=== PATIENT | male | born 1990 | race Caucasian/White ===

== ENCOUNTER 2020-06-01 19:18 | Emergency (ER) | payer OTHER ==
[~2020-06-01] VITALS: Ht 170.2 cm; Wt 70.8 kg
[2020-06-01] MEDS ORDERED: ONDANSETRON HCL/PF 4 MG/2 ML VIAL ONE (19:47)
[2020-06-01] MEDS ORDERED: MORPHINE SULFATE INJ 4 MG/ML DISP.SYRIN ONE (19:47)
[2020-06-01 19:57] LABS: BASOPHILS % (AUTO) 0.3 % (0.0-2.0); EOSINOPHILS % (AUTO) 0.1 % (0.0-6.0); HEMATOCRIT 49 % (39-51); HEMOGLOBIN 16.4 g/dL (13.5-17.5); LYMPHOCYTES # (AUTO) 0.3 /CMM (0.8-4.8); MEAN CORPUSCULAR HGB CONC 34 g/dl (31.0-36.0); MEAN CORPUSCULAR VOLUME 94 fL (80-96); MONOCYTES # (AUTO) 0.4 /CMM (0.1-1.30); NEUTROPHILS # (AUTO) 4.5 /CMM (1.8-8.9); NEUTROPHILS % (AUTO) 87.6 % (43.0-81.0); PLATELET COUNT (AUTO) 189 /CMM (150-450); WHITE BLOOD COUNT (AUTO) 5.2 K/uL (4.3-11.0)
[2020-06-01 20:00] LABS: BILIRUBIN,URINE Negative (NEGATIVE); COLOR,URINE YELLOW (YELLOW); LEUKOCYTE ESTERASE ,URINE Negative (NEGATIVE); NITRITE, URINE Negative (NEGATIVE); PROTEIN,URINE Negative (NEGATIVE); UGLUCOSE Negative (NEGATIVE); UROBILINOGEN,URINE 0.2 EU/dL (0.2)
[2020-06-01] MEDS ORDERED: MORPHINE SULFATE INJ 2 MG/ML DISP.SYRIN IV ONE (20:00)
[2020-06-01] MEDS ORDERED: ONDANSETRON HCL/PF 4 MG/2 ML VIAL IVP ONE (20:00)
[2020-06-01] MEDS ORDERED: IV NS 0.9% 1,000 ML BAG IV ONE (20:00)
[2020-06-01 20:21] LABS: ALBUMIN 4.1 g/dL (3.4-5.0); BILIRUBIN,TOTAL 0.5 mg/dL (0.2-1.0); CALCIUM, SERUM 8.7 mg/dL (8.5-10.1); POTASSIUM 3.9 mmol/L (3.5-5.1); TOTAL PROTEIN, SERUM 7.3 g/dL (6.4-8.2)
[2020-06-01] MEDS ORDERED: TRAM50TA2 PO (21:01)
[2020-06-01 21:20] VITALS: BP 115/76
== END 2020-06-01 21:20 | disposition home or self-care (01) ==
LOC: ER 19:21
DX: G35 Multiple sclerosis (principal); J45.909 Unspecified asthma, uncomplicated; F20.9 Schizophrenia, unspecified; Z79.52 Long term (current) use of systemic steroids; Z20.822 Contact with and (suspected) exposure to COVID-19
CPT/HCPCS: 36415; 71045; 80053; 81003; 85025; 87426; 93005; 96361; 96374; 96375; 99285; C9803; J2270; J2405; J7030

== ENCOUNTER → 2020-09-02 | Emergency (ER) | payer OTHER ==
[~2020-09-02] VITALS: Ht 170.2 cm; Wt 63.5 kg
[~2020-09-02] MED LIST: PRED20TA PO; TRAM50TA2 PO; predniSONE 10 MG TABLET ONE
[2020-09-02 04:04] VITALS: BP 112/66
--- NOTE | 2020-09-02 04:10 | NUR ---
PATIENT BIBRA 878 FOR C/O DIZZINESS, H/A AND VISUAL DIFFICULTY X 3 DAYS. PATIENT IS A/OX 4, RR EVEN AND UNLABORED, NO SIGNS OF SOB NOTED. PATIENT CONNECTED TO SOFT SUGAR SUPERVISOR AND POX. WILL CONTINUE TO MONITOR.
[2020-09-02] MEDS: predniSONE 50 MG TABLET PO ONE (04:44)
== END | disposition home or self-care (01) ==
LOC: ER 04:04
DX: G35 Multiple sclerosis (principal); J45.909 Unspecified asthma, uncomplicated; F20.9 Schizophrenia, unspecified; Z60.2 Problems related to living alone; Z79.899 Other long term (current) drug therapy
CPT/HCPCS: 99283; J7512